=== PATIENT | male | born 1990 | race Caucasian/White ===

== ENCOUNTER 2023-07-30 17:30 | Outpatient (CLI) | payer SELFPAY ==
[2023-07-30 21:15] LABS: BASOPHILS # (AUTO) 0.1 10^3/uL (0.0-0.1); BASOPHILS % (AUTO) 0.5 %; EOSINOPHILS # (AUTO) 0.1 10^3/uL (0.0-0.7); HCT - HEMATOCRIT 43.1 % (42.0-52.0); HGB - HEMOGLOBIN 14.6 g/dL (14.0-18.0); LYMPHOCYTES # (AUTO) 2.8 10^3/uL (1.5-3.5); MEAN CORPUSCULAR HEMOGLOBIN 28.5 pg (27.0-31.0); MEAN CORPUSCULAR HGB CONC 33.9 g/dL (32.0-36.0); MEAN PLATELET VOLUME 9.3 fL (7.4-11.4); MONOCYTES # (AUTO) 1.1 10^3/uL (0.0-1.0); MONOCYTES % (AUTO) 7.9 %; NEUTROPHILS # (AUTO) 9.8 10^3/uL (1.5-6.6); NEUTROPHILS % (AUTO) 70.3 %; PLT - PLATELET COUNT 229 10^3/uL (130-450); RED BLOOD COUNT 5.13 10^6/uL (4.70-6.10); WHITE BLOOD COUNT 13.9 x10^3/uL (4.8-10.8)
[2023-07-30 21:49] LABS: INFECTIOUS MONONUCLEOSIS NEGATIVE (Negative)
== END 2023-07-30 17:45 | disposition home or self-care (01) ==
LOC: LAB.N 17:30
PROVIDERS: ATTEND Physician Assistant
DX: R22.1 Localized swelling, mass and lump, neck (principal)
CPT/HCPCS: 36415; 85025; 86308